=== PATIENT | male | born 1945 | race Caucasian/White ===

== ENCOUNTER 2017-10-07 15:30 | Emergency (ER) | payer OTHER ==
[~2017-10-07] VITALS: Ht 172.7 cm; Wt 68.2 kg
[2017-10-07 15:32] VITALS: Ht 172.7 cm; Wt 68.2 kg
[2017-10-07 16:13] LABS: BASOPHILS 0.3 % (0-2); EOSINOPHILS 3.4 % (0-7); HEMATOCRIT 41.7 % (42.0-54.0); HEMOGLOBIN 14.2 g/dL (13.5-17.5); LYMPHOCYTES 31.3 % (15-50); MCH 32.1 pg (26.0-34.0); MCHC 34.1 g/dL (31.0-37.0); MCV 94.1 fL (80.0-100.0); MEAN PLATELET VOLUME 10.3 fL (7.4-10.4); MONOCYTES 8.9 % (2-11); NEUTROPHILS 56.1 % (40-80); PLATELET COUNT 205 10x3/uL (130-400); RBC 4.43 10x6/uL (4.20-6.10); RDW 13.6 % (11.5-14.5); WBC 6.8 10x3/uL (4.8-10.8)
[2017-10-07 16:31] LABS: ALBUMIN 3.4 g/dL (3.4-5.0); ALKALINE PHOSPHATASE 68 U/L (46-116); ALT (SGPT) 26 U/L (10-68); BILIRUBIN - TOTAL 0.29 mg/dL (0.2-1.3); CALC OSMOLALITY 275 mosm/kg (275-300); CALCIUM 8.6 mg/dL (8.5-10.1); CARBON DIOXIDE 28.3 mmol/L (21.0-32.0); CHLORIDE - SERUM 104 mmol/L (98-107); GLUCOSE 103 mg/dL (74-106); POTASSIUM - SERUM 3.7 mmol/L (3.5-5.1); SODIUM 138 mmol/L (136-145); UREA NITROGEN 12 mg/dL (7-18); eGFR NON AFRICAN AMERICAN 78 mL/min (90-120)
[2017-10-07 16:43] LABS: TROPONIN-I < 0.017 ng/mL (0.000-0.060)
[2017-10-07 21:19] VITALS: BP 137/54
[2017-10-08] MEDS ORDERED: PLAVIX75 MG PO (18:40)
[2017-10-08] MEDS ORDERED: BAYER CHEWABLE81 MG PO (18:40)
[2017-10-14 07:41] VITALS: Ht 172.7 cm; Wt 68.2 kg
== END 2017-10-07 19:21 | disposition home or self-care (01) ==
LOC: D.ER 15:30
PROVIDERS: Family Medicine
DX: I10 Essential (primary) hypertension (principal); R07.9 Chest pain, unspecified; F17.200 Nicotine dependence, unspecified, uncomplicated

== ENCOUNTER 2017-10-08 09:59 | Outpatient (CLI) | payer OTHER ==
[~2017-10-08] VITALS: Ht 172.7 cm; Wt 68.2 kg
--- NOTE | ~2017-10-08 | HEMODYNAMI ---
PATIENT:GERBER OSEI MEDICAL RECORD: [id number] : 47 LOCATION:D.CAT ADMISSION DATE: 10/08/17 Generatedon:10/08/201715:17 Patient name: GERBER OSEI Patient #: [id number] SSN: : Date of study: 10/08/2017 Page: Of Hemodynamic Procedure Report Patient Data Patient Demographics Procedure consent was obtained First Name: GERBER Gender: Male Last Name: : 1945 [facility] Initial: DOLORES Age: 71 year(s) Patient #: [id number] Race: Unknown Additional ID: [id number] Contact details Address: [address] [place] [address] State: [place] City: [place] Zip code: [address] Past Medical History Allergies: No known allergies Admission Admission Data Admission Date: 10/08/2017 Admission Time: 9:59 Lab Results Lab Result Date: 10/08/2017 Lab Result Time: 0:00 Biochemistry Name Units Result Min Max BUN mg/dl 12 --(-*--)-- 7 18 Creatinine mg/dl 1 --(--*-)-- 0.6 1.3 CBC Name Units Result Min Max Hemoglobin g/dl 15.4 --(-*--)-- 13.5 17.5 Procedure Procedure Types Cath Procedure Diagnostic Procedure [facility] w/Coronaries Sedation Charges Moderate Sedation up to 15 minutes PCI Procedure Coronary Stent Coronary Stent Initial Procedure Description Procedure Date Procedure Date: 10/08/2017 Procedure Start Time: 14:47 Procedure End Time: 15:16 Procedure Staff Name Function Wm Mijares MD Performing Physician Marcel Bobo RN Nurse Pallavi Ludwig RT Monitor Rod Marte RT Scrub Procedure Data Cath Procedure Fluoroscopy Diagnostic fluoroscopy Total fluoroscopy Time: 3.9 time: 3.9 min min Diagnostic fluoroscopy Total fluoroscopy dose: 140 dose: 140 mGy mGy Contrast Material Contrast Material Type Amount (ml) Isovue 370 90 Entry Location Entry Primary Successful Side Size Upsize Upsize Entry Closure Succes sful Closure Location (Fr) 1 (Fr) 2 (Fr) Remarks Device Remarks Femoral Right 5 Fr 6 Fr Exoseal artery Short Estimated blood loss: 10 ml Diagnostic catheters Device Type Used For End Catheter Placement MULTIPACK Pigtail 5 Fr Procedure catheter MULTIPACK JL 4.0 5Fr Procedure catheter MULTIPACK 3DRC 5Fr Procedure catheter Procedure Complications No complications Procedure Medications Medication Administration Route Dosage Oxygen etCO2 Nasal cannula 2 l/min Heparin Flush Bag added to field 2 bags (1000units/500ml NS) 0.9% NaCl I.V. 100 ml/hr Fentanyl I.V. 50 mcg Versed I.V. 1 mg Fentanyl I.V. 50 mcg Versed I.V. 1 mg Heparin Bolus I.V. 4000 units Integrilin (Bolus I.V. 6.2 ml 2mg/ml) Nitroglycerin IC/IA I.C. 200 mcg Nitroglycerin IC/IA I.C. 200 mcg Integrilin (Bolus I.C. 6.2 ml 2mg/ml) Plavix P.O. 600 mg Hemodynamics Rest HGB: 15.4 (g/dl) Heart Rate: 61 (bpm) Snapshots Pre Cath Intra NCS Post Cath Vital Signs Time Heart Resp SPO2 etCO2 NIBP (mmHg) Rhythm Pain Sedation Rate (ipm) (%) (mmHg) Status Level (bpm) 14:37:31 59 18 100 24.6 168/86(107) NSR 0 (11) 10(A) , No pain 14:41:55 62 16 100 25.4 160/83(119) NSR 0 (11) 10(A) , No pain 14:46:16 59 16 99 26.1 138/69(114) NSR 0 (11) 10(A) , No pain 14:50:34 63 17 99 17.2 132/72(117) NSR 0 (11) 9(A) , No pain 14:54:52 63 16 99 26.9 140/68(114) NSR 0 (11) 9(A) , No pain 14:59:06 64 14 99 30.6 133/80(109) NSR 0 (11) 9(A) , No pain 15:03:24 61 16 97 27.6 107/49(80) NSR 0 (11) 9(A) , No pain 15:07:34 58 16 97 26.1 114/62(88) NSR 0 (11) 9(A) , No pain 15:09:33 55 17 97 25.4 113/57(94) NSR 0 (11) 9(A) , No pain Medications Time Medication Route Dose Verified Delivered Reason Notes Effectiveness by by 14:41:14 Oxygen etCO2 2 Wm Rod Per physician Nasal l/min Maryana Bobo RN cannula 14:41:22 Heparin Flush added 2 Wm Rod used for Bag to bags Maryana Bobo RN procedure (1000units/500ml field NS) 14:41:34 0.9% NaCl I.V. 100 Wm Rod Per physician ml/hr Maryana Bobo RN 14:46:55 Fentanyl I.V. 50 Wm Ropery for sedation mcg Maryana Bobo RN 14:47:01 Versed I.V. 1 mg Wm Rod for sedation Maryana Bobo RN 14:49:41 Fentanyl I.V. 50 Wm Rod for sedation mcg Maryana Bobo RN 14:49:47 Versed I.V. 1 mg Wm Rod for sedation Maryana Bobo RN 14:55:16 Heparin Bolus I.V. 4000 Wm Rod for units Maryana Bobo RN anticoagulation 14:55:36 Integrilin I.V. 6.2 Wm Rod for (Bolus 2mg/ml) ml Maryana Bobo RN antiplatelet therapy 15:00:37 Nitroglycerin I.C. 200 Wm Rod for IC/IA mcg Maryana Bobo RN vasodilation 15:02:37 Nitroglycerin I.C. 200 Wm Ropery for IC/IA mcg Maryana Bobo RN vasodilation 15:03:03 Integrilin I.C. 6.2 Wm Burk for (Bolus 2mg/ml) ml Maryana Mijares MD antiplatelet therapy 15:08:36 Plavix P.O. 600 Wm Rod for mg Maryana Bobo RN antiplatelet therapy Procedure Log Time Note 14:04:35 Plan of Care:Hemodynamics will remain stable., Cardiac rhythm will remain stable., Comfort level will be maintained., Respiratory function will remain adequate., Patient/ family verbilizes understanding of procedure., Procedure tolerated without complication., Recovers from procedure without complications.. 14:04:37 Signed procedure consent form obtained from patient. 14:04:40 H&P Date Dictated: 10/08/2017 ER History on chart.. 14:05:10 Lab Result : BUN 12 mg/dl 14:05:10 Lab Result : Creatinine 1 mg/dl 14:05:10 Lab Result : Hemoglobin 15.4 g/dl 14:05:50 Marcel Bobo RN sent for patient. Start room use. 14:06:18 Time tracking: Regular hours (M-F 7:00 - 5:00) 14:24:21 Patient received from ED to CCL 3 Alert and oriented. Tansferred to table in Supine position. 14:24:26 Warm blankets applied, and noel hugger turned on for patient comfort. 14:24:27 Correct patient and procedure confirmed by team. 14:31:41 Vital chart was started 14:36:25 Baseline sample Acquired. 14:36:40 Full Disclosure recording started 14:36:41 Pre-procedure instructions explained to patient. 14:36:41 Pre-op teaching completed and patient verbalized understanding. 14:36:43 Family in waiting room. 14:36:47 Patient NPO since Midnight. 14:36:52 Patient allergic to No known allergies 14:36:56 Is the patient allergic to Iodine/contrast media? No. 14:36:58 Patient diabetic? No. 14:37:04 Previous problem with sedation/anesthesia? No ? 14:37:05 Snore? Yes 14:37:06 Sleep apnea? No 14:37:07 Deviated septum? No 14:37:08 Opens mouth fully? Yes 14:37:09 Sticks out tongue? Yes 14:37:11 Airway obstruction? No ? 14:37:19 Dentures? No LOOSE TEETH 14:40:05 Pre procedure: right dorsailis pedis pulse 2+ Normal; easily identifiable; not easily obliterated 14:40:08 Patient pain scale 0/10 ?. 14:40:13 IV patent on arrival in right antecubital with 0.9% NaCl at [facility]. 14:40:14 Lab results completed and on chart. 14:40:17 Right groin area was prepped with chlora-prep and draped in sterile fashion 14:40:18 Alarms reviewed by R. N. 14:40:18 Sharps counted by scrub and verified by R.N. 14:40:22 Use device set Femoral Dx 14:40:23 ACIST Syringe (10856) opened to sterile field. 14:40:23 Bag Decanter (2002S) opened to sterile field. 14:40:24 ACIST Hand Control (73123) opened to sterile field. 14:40:24 ACIST Manifold (50180) opened to sterile field. 14:40:25 Tegaderm 4 x 4 (1626W) opened to sterile field. 14:40:37 Medline Cath Pack ([id number]) opened to sterile field. 14:40:38 DIAGNOSTIC WIRE .035 260cm J wire (765462) opened to sterile field. 14:40:39 DIAGNOSTIC Multipack 5Fr catheter set (UI6532) opened to sterile field. 14:40:40 SHEATH Prelude 5Fr 0.035 (IBC-4H-29-035) opened to sterile field. 14:41:14 Oxygen 2 l/min etCO2 Nasal cannula was administered by Marcel Bobo RN; Per physician; 14:41:22 Heparin Flush Bag (1000units/500ml NS) 2 bags added to field was administered by Marcel Bobo RN; used for procedure; 14:41:34 0.9% NaCl 100 ml/hr I.V. was administered by Marcel Bobo RN; Per physician; 14:45:32 Zero performed for pressure channel P1 14:45:35 --------ALL STOP TIME OUT------ 14:45:35 Final Timeout: patient, procedure, and site verified with staff and physician. All members of the team are in agreement. 14:45:38 Right groin site verified by team. 14:45:41 Physical assessment completed. ASA score P 2 - A patient with mild systemic disease as per Wm Mijares MD. 14:45:43 Sedation plan: IV Moderate Sedation Medication:Versed, Fentanyl 14:46:55 Fentanyl 50 mcg I.V. was administered by Marcel Bobo RN; for sedation; 14:47:01 Versed 1 mg I.V. was administered by Marcel Bobo RN; for sedation; 14:47:04 Procedure started. 14:47:08 Local anesthetic to right femoral artery with Lidocaine 2% by Wm Mijares MD.INITIAL ACCESS ONLY 14:47:12 Zero performed for pressure channel P1 14:47:31 A 5 Fr sheath was inserted into the Right Femoral artery 14:47:48 A MULTIPACK Pigtail 5 Fr catheter was advanced over the wire and used for Procedure. 14:48:03 LV gram done using FRANKLIN 14:48:06 Injector settings: Ml/sec: 10, Volume: 20, 14:48:44 EF : 60 % 14:48:46 Catheter removed. 14:48:50 A MULTIPACK JL 4.0 5Fr catheter was advanced over the wire and used for Procedure. 14:49:41 Fentanyl 50 mcg I.V. was administered by Marcel Bobo RN; for sedation; 14:49:47 Versed 1 mg I.V. was administered by Marcel Bobo RN; for sedation; 14:50:26 LCA angiography performed. 14:50:44 Catheter removed. 14:50:49 A MULTIPACK 3DRC 5Fr catheter was advanced over the wire and used for Procedure. 14:51:50 RCA angiography performed. 14:51:54 Catheter removed. 14:52:10 INFLATOR Merit BasixCompak (JG5963) opened to sterile field. 14:52:11 CHOICE PT Extra Support 182cm wire ([id number]) opened to sterile field. 14:52:11 SHEATH 6FR [place] (ONK937) opened to sterile field. 14:52:26 Sheath upsized to a 6 Fr Short. 14:52:53 GUIDE 6FR AR 2.0 catheter (OH9BF34) opened to sterile field. 14:53:31 6 Fr AR 2 guide catheter was inserted over the wire 14:54:18 CHOICE ES 182 wire advanced. 14:54:19 Wire advanced across lesion. 14:55:16 Heparin Bolus 4000 units I.V. was administered by Marcel Bobo RN; for anticoagulation; 14:55:36 Integrilin (Bolus 2mg/ml) 6.2 ml I.V. was administered by Marcel Bobo RN; for antiplatelet therapy; 14:56:36 Place stent Inflation Number: 1 A RICHIE RX 3.5 x 38 stent ([id number]) was prepped and advanced across the Mid RCA. The stent was deployed at 17 HARJE[address] for 0:10 (min:sec). 14:56:50 Stent catheter was removed intact over wire. 14:58:36 Place stent Inflation Number: 1 A RICHIE RX 3.5 x 30 stent ([id number]) was prepped and advanced across the Prox RCA. The stent was deployed at 17 HARJEET for 0:10 (min:sec). 14:59:17 Stent catheter was removed intact over wire. 15:00:37 Nitroglycerin IC/IA 200 mcg I.C. was administered by Marcel Bobo RN; for vasodilation; 15:02:37 Nitroglycerin IC/IA 200 mcg I.C. was administered by Marcel Bobo RN; for vasodilation; 15:03:03 Integrilin (Bolus 2mg/ml) 6.2 ml I.C. was administered by Wm Mijares MD; for antiplatelet therapy; 15:04:21 Wire removed. 15:04:22 Guide catheter removed. 15:04:30 EXOSEAL 6Fr (EX600) opened to sterile field. 15:05:18 Sheath removed intact; hemostasis achieved with Exoseal to the Right Femoral artery. 15:06:01 Procedure ended.(Physican Out) 15:07:14 Fluoroscopy time 03.90 minutes. 15:07:19 Fluoroscopy dose: 140 mGy 15:07:19 Flurop Dose total: 140 15:07:26 Contrast amount:Isovue 370 90ml. 15:07:27 Sharps counted by scrub and verified by R.N. 15:07:31 Post-op/insertion site Right Femoral artery dressed using a 4 x 4 and Tegaderm. 15:07:35 Post right femoral artery:stable, soft, clean and dry 15:07:39 Post-procedure physical assessment completed. ASA score P 2 - A patient with mild systemic disease as per Wm Mijares MD. 15:07:41 Post procedure: right dorsailis pedis pulse 2+ Normal; easily identifiable; not easily obliterated. 15:08:30 POST PROCEDURE RHYTHM: SINUS WITH PACs 15:08:36 Plavix 600 mg P.O. was administered by Marcel Bobo RN; for antiplatelet therapy; 15:08:37 Estimated blood loss: 10 ml 15:08:38 Post procedure instruction explained to patient.Patient verbalizes understanding. 15:08:39 Patient needs reinforcement of post procedure teaching. 15:09:06 Procedure type changed to Cath procedure, Diagnostic procedure, LHC, LHC w/Coronaries, Sedation Charges, Moderate Sedation up to 15 minutes, PCI procedure, Coronary Stent, Coronary Stent Initial 15:09:48 Procedure and supply charges have been captured, reviewed, submitted and are correct. 15:09:52 Procedure Complication : No complications 15:09:55 Vital chart was stopped 15:09:56 See physician's report for complete and final results. 15:15:13 FEMSTOP Gold (O28001) opened to sterile field. 15:15:15 Femstop placed over the right femoral artery at 145 mmHg. Hemostasis achieved. 15:16:19 Report given to Pre/Post Procedure Room. 15:16:30 Patient transfered to Pre/Post Procedure Room with Bed. 15:16:32 Procedure ended. 15:16:32 Full Disclosure recording stopped 15:16:35 End room use (Document Last) Intervention Summary Intervention Notes Time ActionType Lesion and Equipment Used Action# Pressure Duration Attributes 14:56:36 Place stent Mid RCA RICHIE RX 3.5 x 1 17 00:10 38 stent ([id number]) 14:58:36 Place stent Prox RCA RICHIE RX 3.5 x 1 17 00:10 30 stent ([id number]) Device Usage Item Name Manufacture Quantity Catalog Number Hospital Part Current Minimal Lot# / Charge Number Stock Stock Serial# Code ACIST Syringe Acist 1 01774 592055 415303 587639 20 (49101) Medical Systems Inc Bag Decanter Microtek 1 2002S 310739 82754 391234 5 (2001S) Medical Inc. ACIST Hand Acist 1 98730 352314 175453 540752 5 Control (75028) Medical Systems Inc ACIST Manifold Acist 1 69064 927158 152741 163669 5 (41407) Medical Systems Inc Tegaderm 4 x 4 3M 1 1626W 631460 871283 615995 5 (1626W) Medline Cath Cardinal 1 [id number] 936920 90827 212449 5 Pack Health ([id number]) DIAGNOSTIC WIRE St Elder 1 779227 632429 052438 319422 30 .035 260cm J wire (825911) DIAGNOSTIC Cardinal 1 YE7646 486985 49544 502740 30 Multipack 5Fr Health catheter set (BP2141) SHEATH Prelude Merit 1 QED-5E-09-035 412941 449941 239431 5 5Fr 0.035 Medical (VFK-0A-75-035) MULTIPACK Cardinal 1 847276 5 Pigtail 5 Fr Health catheter MULTIPACK JL Cardinal 1 027040 5 4.0 5Fr Health catheter MULTIPACK 3DRC Cardinal 1 933604 5 5Fr catheter Health INFLATOR Merit Pollo 1 ZH7291 051717 689033 003821 15 [facility] (DH5460) CHOICE PT Extra [place] 1 [id number] 353636 658394 236252 5 Support 182cm Scientific wire ([id number]) SHEATH 6FR Terumo 1 QVS477 055751 187263 508508 40 [place] (YRB259) GUIDE 6FR AR Medtronic 1 [id number] 668267 15579 961817 1 2.0 catheter (SI1ZM64) RICHIE RX 3.5 x Medtronic 1 [id number] 492246 2807332 441364 5 [id number] 38 stent ([id number]) RICHIE RX 3.5 x Medtronic 1 [id number] 682007 5420327 875853 5 [id number] 30 stent ([id number]) EXOSEAL 6Fr Cardinal 1 EX600 252334 133836 333909 10 (EX600) Health FEMSTOP Gold St Elder 1 B94922 921652 094440 033261 5 ([id number]) Signature Audit [place] Stage Time Signature Unsigned Intra-Procedure 10/08/2017 Pallavi Ludwig 3:17:53 PM RT(R) Signatures Monitor : Pallavi Ludwig Signature : RT Date : Time : [facility] [address] [place] [address]
--- NOTE | ~2017-10-08 | OP ---
PATIENT NAME: GERBER OSEI MEDICAL RECORD: [id number] :47 LOCATION:D.CAT ADMISSION DATE: SURGEON: URSZULA SANTOS MD DATE OF OPERATION: 10/08/2017 PROCEDURES: 1. PTCA stent RCA. 2. Left heart catheterization. 3. Selective coronary angiography. 4. Left ventriculogram. INDICATION: Angina and coronary artery disease. PROCEDURE IN DETAIL: After informed consent was obtained and after a detailed explanation of risks, benefits as well as alternative therapies, the patient elected to proceed with angiogram and angioplasty. The right femoral area was prepped and draped in normal sterile fashion. The right femoral artery was cannulated via modified Seldinger technique with placement of 6-[place] sheath. All catheters exchanged through this sheath. FINDINGS: Left ventriculogram was performed in standard 30-degree FRANKLIN view, reveals good cardiac wall motions throughout all segments. Overall ejection fraction is 60%. SELECTIVE CORONARY ANGIOGRAPHY: 1. Left main is with no significant angiographic disease. 2. Left anterior descending has 80% stenosis throughout the proximal aspect. 3. The left circumflex has at least 80% stenosis in the proximal aspect. 4. The right coronary has multiple areas of 70% to 80% stenosis with what appears to be an auto-dissection as well throughout the proximal vessel. PTCA STENT OF THE RCA: Stents used were 3.5 x 38 and 3.5 x 30, both [place] stents. Result was 0% residual stenosis. OVERALL IMPRESSION: Successful percutaneous transluminal coronary angioplasty stent of the right coronary artery going from greater than 80% initial stenosis to 0% residual. PLAN: PTCA stent of the LAD and circumflex in the near future. TRANSINT:[id number] Voice Confirmation ID: [id number] DOCUMENT ID: [id number] URSZULA SANTOS MD at 1208 CC: [id number] DICTATION DATE: 10/08/17 1516 FNP: 10/08/17 1546 [facility] CLI 10/08/17 [place] [id number] [place] [id number]
--- NOTE | ~2017-10-08 | CN ---
PATIENT NAME:GERBER OSEI MEDICAL RECORD: [id number] : 47 LOCATION:D.ROSSI ADMIT DATE: ACCOUNT: [id number] CONSULTING PHYSICIAN: URSZULA SANTOS MD REFERRING PHYSICIAN: URSZULA SANTOS MD DATE OF CONSULTATION: 10/08/2017 DIAGNOSIS: Unstable angina. HISTORY OF PRESENT ILLNESS: This is a gentleman who presented to the ER yesterday with chest pain compatible with angina. [facility] He was sent out. He has continued to have episodes of chest pain compatible with angina. He has been back to the [facility]. They can still not transfer him. He presented back to our Emergency Room. PHYSICAL EXAMINATION: GENERAL APPEARANCE: Well-nourished, well-developed, appears stated age. Level of distress, comfortable. PSYCHIATRIC: Mental status, alert, normal affect. Orientation, oriented to time, place and person. EYES: Lids and conjunctiva, noninjected. No discharge, no pallor. ENT: Lips, teeth, gums, normal dentition. Oropharynx, no cyanosis, no pallor. NECK: Carotid arteries, bilateral normal upstroke, no bruits, no thrills. JUGULAR VEINS: No jugular venous pressure or distention. CERVICAL LYMPH NODES: Nontender, nonenlarged. THYROID: Not enlarged. Nontender. No nodules. LUNGS: Respiratory effort, unlabored. CHEST: Normal curvature. No thoracic deformity. No chest wall tenderness. Percussion, resonant. Auscultation, clear. No wheezes, no rales, no rhonchi. CARDIOVASCULAR: Precordial exam, nondisplaced. No heaves or pericardial thrills. Rate and rhythm, regular. Heart sounds, normal S1, normal S2. No S3, no gallop, no rub. Systolic murmur, not heard. Diastolic murmur, not heard. EXTREMITIES: No cyanosis, no edema. Peripheral pulses, full and equal in all extremities, except as noted. No bruits appreciated. ABDOMEN: Soft, nondistended. Normal aorta. No bruit. Nontender. No masses. Liver, nontender, no hepatomegaly. Spleen, nontender, no splenomegaly. MUSCULOSKELETAL: No joint tenderness. No joint swelling. No erythema. NEUROLOGICAL: Normal gait, normal strength, normal tone. SKIN: Warm and dry. OVERALL IMPRESSION: Chest pain compatible with angina. We will proceed with coronary angiography. Further care depends upon findings of the angiography. TRANSINT:[id number] Voice Confirmation ID: [id number] DOCUMENT ID: [id number] URSZULA SANTOS MD at 1208 CC: [id number] DICTATION DATE: 10/08/17 1514 FLOOR LAYER TILE: 10/08/17 1524 [facility] CLI 10/08/[address] [id number]
[2017-10-08 10:23] VITALS: Ht 172.7 cm; Wt 68.2 kg
[2017-10-08 11:02] LABS: INR 1.01 (0.85-1.17); PROTIME 12.9 SECONDS (11.6-15.0)
[2017-10-08 11:03] LABS: D-DIMER-QUANTITATIVE 0.72 ug/mLFEU (0.20-0.54)
[2017-10-08 11:06] LABS: ALBUMIN 3.8 g/dL (3.4-5.0); ALKALINE PHOSPHATASE 78 U/L (46-116); ALT (SGPT) 26 U/L (10-68); BILIRUBIN - TOTAL 0.66 mg/dL (0.2-1.3); CALC OSMOLALITY 281 mosm/kg (275-300); CALCIUM 9.1 mg/dL (8.5-10.1); CARBON DIOXIDE 28.9 mmol/L (21.0-32.0); CHLORIDE - SERUM 104 mmol/L (98-107); GLUCOSE 109 mg/dL (74-106); POTASSIUM - SERUM 4.1 mmol/L (3.5-5.1); PROTEIN - SERUM 7.8 g/dL (6.4-8.2); SODIUM 141 mmol/L (136-145); UREA NITROGEN 12 mg/dL (7-18); eGFR NON AFRICAN AMERICAN 78 mL/min (90-120)
[2017-10-08 11:09] LABS: BASOPHILS 0.3 % (0-2); EOSINOPHILS 2.6 % (0-7); HEMATOCRIT 45.1 % (42.0-54.0); HEMOGLOBIN 15.4 g/dL (13.5-17.5); IMMATURE GRANULOCYTES 0.2 % (0-5); LYMPHOCYTES 31.4 % (15-50); MCHC 34.1 g/dL (31.0-37.0); MCV 93.8 fL (80.0-100.0); MEAN PLATELET VOLUME 10.4 fL (7.4-10.4); MONOCYTES 5.9 % (2-11); NEUTROPHILS 59.6 % (40-80); PLATELET COUNT 216 10x3/uL (130-400); RBC 4.81 10x6/uL (4.20-6.10); RDW 13.6 % (11.5-14.5); WBC 6.3 10x3/uL (4.8-10.8)
[2017-10-08 11:18] LABS: CKMB 1.4 U/L (0.0-3.6); CREATINE KINASE 73 UL (21-232)
[2017-10-08 11:19] LABS: TROPONIN-I < 0.017 ng/mL (0.000-0.060)
[2017-10-08 14:15] VITALS: BP 174/86
[2017-10-08] MEDS ORDERED: PLAVIX75 MG PO (18:40)
[2017-10-08] MEDS ORDERED: BAYER CHEWABLE81 MG PO (18:40)
== END 2017-10-08 19:15 | disposition home or self-care (01) ==
LOC: D.CATH 09:59 → D.ER 09:59 → EDSTATUS 12:30 → D.ER 14:19 → D.CLR 15:27 → D.CATH 19:15
PROVIDERS: Family Medicine
DX: I25.119 Atherosclerotic heart disease of native coronary artery with unspecified angina pectoris (principal); Z01.812 Encounter for preprocedural laboratory examination
CPT/HCPCS: 93458; C9600

== ENCOUNTER 2017-10-14 07:41 | Outpatient (CLI) | payer MEDICARE ==
[~2017-10-14] VITALS: Ht 172.7 cm; Wt 68.2 kg
--- NOTE | ~2017-10-14 | HP ---
PATIENT: GERBER OSEI [place] MEDICAL RECORD: [id number] ACCOUNT: [id number] LOCATION:EMERY : 47 ADMISSION DATE: 10/14/17 HISTORY AND PHYSICAL EXAMINATION DATE OF SERVICE: 10/14/2017 ADMITTING DIAGNOSES: 1. Angina. 2. Coronary artery disease. 3. Recent PTCA stent of RCA with concomitant disease of LAD. HISTORY OF PRESENT ILLNESS: Mr. Osei presents with unstable anginal symptomatology, found to have 3-vessel coronary artery disease, underwent successful PTCA stent of the RCA. He is now brought back for PTCA stent of the LAD and circumflex. PHYSICAL EXAMINATION: GENERAL APPEARANCE: Well-nourished, well-developed, appears stated age. Level of distress, comfortable. PSYCHIATRIC: Mental status, alert, normal affect. Orientation, oriented to time, place and person. EYES: Lids and conjunctiva, noninjected. No discharge, no pallor. ENT: Lips, teeth, gums, normal dentition. Oropharynx, no cyanosis, no pallor. NECK: Carotid arteries, bilateral normal upstroke, no bruits, no thrills. JUGULAR VEINS: No jugular venous pressure or distention. CERVICAL LYMPH NODES: Nontender, nonenlarged. THYROID: Not enlarged. Nontender. No nodules. LUNGS: Respiratory effort, unlabored. CHEST: Normal curvature. No thoracic deformity. No chest wall tenderness. Percussion, resonant. Auscultation, clear. No wheezes, no rales, no rhonchi. CARDIOVASCULAR: Precordial exam, nondisplaced. No heaves or pericardial thrills. Rate and rhythm, regular. Heart sounds, normal S1, normal S2. No S3, no gallop, no rub. Systolic murmur, not heard. Diastolic murmur, not heard. EXTREMITIES: No cyanosis, no edema. Peripheral pulses, full and equal in all extremities, except as noted. No bruits appreciated. ABDOMEN: Soft, nondistended. Normal aorta. No bruit. Nontender. No masses. Liver, nontender, no hepatomegaly. Spleen, nontender, no splenomegaly. MUSCULOSKELETAL: No joint tenderness. No joint swelling. No erythema. NEUROLOGICAL: Normal gait, normal strength, normal tone. SKIN: Warm and dry. REVIEW OF SYSTEMS: The patient reports easy bruising but reports no swollen glands. The patient reports no fever, no night sweats, no significant weight gain, no significant weight loss. No significant exercise tolerance. The patient reports no dry eyes, no irritation, no vision change. Patient reports no difficulty hearing and no ear pain. Patient reports no frequent nose bleeds or nose and sinus problems. Patient reports on arm pain on exertion. No shortness of breath while lying down. No history of heart murmur. Patient reports no cough, no wheezing or coughing up blood. Patient reports no abdominal pain, no vomiting. Normal appetite. No diarrhea and not vomiting blood. No nausea and no constipation. Patient reports no incontinence. No difficulty urinating. No hematuria. No increased frequency. Patient reports no muscle aches. No weakness, no arthralgias, no back pain. No swelling of the extremities. Patient reports no abnormal mole, no jaundice, no rashes. Reports HISTORY AND PHYSICAL [id number] GERBER OSEI no loss of consciousness. No weakness and no numbness. No seizures, dizziness, or headaches. The patient reports no depression, no sleep disturbance, feeling safe in a relationship and no alcohol abuse. Patient reports on fatigue. Reports no runny nose or sinus pressure. No itching, no hives, and no frequent sneezing. OVERALL IMPRESSION: Anginal symptomatology with significant disease of the LAD and circumflex. We will proceed with transcatheter revascularization of the LAD and circumflex. TRANSINT:[id number] Voice Confirmation ID: [id number] DOCUMENT ID: [id number] URSZULA SANTOS MD at 1741 CC: [id number] DICTATION DATE: 10/13/17 1601 OBSTETRICS AND GYNECOLOGY PROFESSOR: 10/13/17 1619 [facility] CLI 10/14/17 [place] [id number]
--- NOTE | ~2017-10-14 | HEMODYNAMI ---
PATIENT:GERBER OSEI MEDICAL RECORD: [id number] : 47 LOCATION:D.CAT ADMISSION DATE: 10/14/17 Generatedon:10/14/20179:28 Patient name: GERBER OSEI Patient #: [id number] SSN: : Date of study: 10/14/2017 Page: Of Hemodynamic Procedure Report Patient Data Patient Demographics Procedure consent was obtained First Name: GERBER Gender: Male Last Name: : 1945 [facility] Initial: DOLORES Age: 71 year(s) Patient #: [id number] Race: Additional ID: [id number] Contact details Address: [address] [place] [address] State: [place] City: [place] Zip code: [address] Past Medical History Allergies: No known allergies Admission Admission Data Admission Date: 10/14/2017 Admission Time: 7:41 Lab Results Lab Result Date: 10/14/2017 Lab Result Time: 0:00 CBC Name Units Result Min Max Hemoglobin g/dl 13.3 -*(----)-- 13.5 17.5 Procedure Procedure Types Cath Procedure PCI Procedure Coronary Stent Coronary Stent Initial x2 Procedure Description Procedure Date Procedure Date: 10/14/2017 Procedure Start Time: 9:08 Procedure End Time: 9:27 Procedure Staff Name Function Wm Mijares MD Performing Physician Rod Marte RT Monitor Marcel Bobo RN Nurse Rocco Renteria RT Scrub Procedure Data Cath Procedure Fluoroscopy Diagnostic fluoroscopy Total fluoroscopy Time: 3.1 time: 3.1 min min Diagnostic fluoroscopy Total fluoroscopy dose: dose: 101.3 mGy 101.3 mGy Contrast Material Contrast Material Type Amount (ml) Isovue 300 69 Entry Location Entry Primary Successful Side Size Upsize Upsize Entry Closure Succes sful Closure Location (Fr) 1 (Fr) 2 (Fr) Remarks Device Remarks Femoral Left 6 Fr DEVICE artery Short DID NOT DEPLOY Procedure Medications Medication Administration Route Dosage Oxygen etCO2 Nasal cannula 2 l/min Heparin Flush Bag added to field 2 bags (1000units/500ml NS) 0.9% NaCl I.V. 100 ml/hr Fentanyl I.V. 50 mcg Versed I.V. 1 mg Fentanyl I.V. 50 mcg Versed I.V. 1 mg Heparin Bolus I.V. 4000 units Fentanyl I.V. 50 mcg Hemodynamics Rest HGB: 13.3 (g/dl) Heart Rate: 60 (bpm) Snapshots Pre Cath Intra NCS Post Cath Vital Signs Time Heart Resp SPO2 etCO2 NIBP (mmHg) Rhythm Pain Sedation Rate (ipm) (%) (mmHg) Status Level (bpm) 8:38:18 61 16 99 0 179/96(154) NSR 0 (11) 10(A) , No pain 8:43:27 60 16 100 24.7 179/95(146) NSR 0 (11) 10(A) , No pain 8:48:33 62 17 97 14.2 160/97(136) NSR 0 (11) 10(A) , No pain 8:52:51 57 17 99 22.5 154/95(133) NSR 0 (11) 10(A) , No pain 8:57:58 60 16 94 0 163/83(126) NSR 0 (11) 10(A) , No pain 9:02:16 61 16 92 0 147/81(112) NSR 0 (11) 10(A) , No pain 9:06:32 58 17 94 22.5 151/83(118) NSR 0 (11) 9(A) , No pain 9:10:50 61 16 95 34.5 152/88(126) NSR 0 (11) 9(A) , No pain 9:15:06 62 17 94 36 158/85(134) NSR 0 (11) 9(A) , No pain 9:19:30 63 16 95 34.5 156/74(121) NSR 0 (11) 9(A) , No pain 9:20:56 58 17 95 33.8 155/88(120) NSR 0 (11) 9(A) , No pain 9:25:55 59 16 96 37.5 156/85(126) NSR 0 (11) 9(A) , No pain Medications Time Medication Route Dose Verified Delivered Reason Notes Effectiveness by by 8:40:20 Oxygen etCO2 2 Wm Marcel Per physician Nasal l/min Maryana Bobo RN cannula 8:40:28 Heparin Flush added 2 Wm Rod used for Bag to bags Maryana Bobo RN procedure (1000units/500ml field NS) 8:40:37 0.9% NaCl I.V. 100 Wm Ropery Per physician ml/hr Maryana Bobo RN 9:03:28 Fentanyl I.V. 50 Wm Ropery for sedation mcg Maryana Bobo RN 9:03:35 Versed I.V. 1 mg Wm Ropery for sedation Maryana Bobo RN 9:09:19 Fentanyl I.V. 50 Wm Marcel for sedation mcg Maryana Bobo RN 9:09:22 Versed I.V. 1 mg Wm Marcel for sedation Maryana Bobo RN 9:09:32 Heparin Bolus I.V. 4000 Wm Marcel for units Maryana Bobo RN anticoagulation 9:12:38 Fentanyl I.V. 50 Wm Rod for sedation mcg Maryana Bobo RN Procedure Log Time Note 8:17:34 Rod Marte RT(R) (CV) sent for patient. Start room use. 8:21:28 Informed consent obtained and on chart 8:21:34 PCI Cath Status : Elective 8:22:36 Time tracking: Regular hours (M-F 7:00 - 5:00) 8:22:42 Plan of Care:Hemodynamics will remain stable., Cardiac rhythm will remain stable., Comfort level will be maintained., Respiratory function will remain adequate., Patient/ family verbilizes understanding of procedure., Procedure tolerated without complication., Recovers from procedure without complications.. 8:30:41 Patient received from Pre/Post Procedure Room to CCL 3 Alert and oriented. Tansferred to table in Supine position. 8:30:42 Warm blankets applied, and noel hugger turned on for patient comfort. 8:30:43 Correct patient and procedure confirmed by team. 8:30:44 ECG and BP/O2 sat monitors applied to patient. 8:37:05 Vital chart was started 8:37:41 Baseline sample Acquired. 8:38:00 Rhythm: sinus rhythm 8:38:02 Full Disclosure recording started 8:38:12 H&P Date Dictated: 10/14/2017 New H&P dictated by physician.. 8:38:15 Pre-procedure instructions explained to patient. 8:38:15 Pre-op teaching completed and patient verbalized understanding. 8:38:17 Family in waiting room. 8:38:19 Patient NPO since Midnight. 8:38:27 Patient allergic to No known allergies 8:40:12 Is the patient allergic to Iodine/contrast media? No. 8:40:14 Is patient on blood thinner?Yes 8:40:17 ACC The patient was administered the following blood thiners within the last 24 hours: ACCPlavix 8:40:20 Oxygen 2 l/min etCO2 Nasal cannula was administered by Marcel Bobo RN; Per physician; 8:40:20 Patient diabetic? No. 8:40:22 ----Pre-sedation anethsthesia assessment.---- 8:40:25 Previous problem with sedation/anesthesia? No ? 8:40:27 Snore? Yes 8:40:28 Heparin Flush Bag (1000units/500ml NS) 2 bags added to field was administered by Marcel Bobo RN; used for procedure; 8:40:29 Sleep apnea? No 8:40:31 Deviated septum? No 8:40:31 Opens mouth fully? Yes 8:40:32 Sticks out tongue? Yes 8:40:35 Airway obstruction? No ? 8:40:37 0.9% NaCl 100 ml/hr I.V. was administered by Marcel Bobo RN; Per physician; 8:40:38 Dentures? No ? 8:41:49 Pre procedure: left dorsailis pedis pulse 1+ Palpable, but thready & weak; easily obliterated 8:42:06 Patient pain scale 0/10 ?. 8:42:20 IV patent on arrival in left wrist with 0.9% NaCl at O. 8:44:35 Lab Result : Hemoglobin 13.3 g/dl 8:44:40 Lab results completed and on chart. 8:44:45 Left groin area was prepped with chlora-prep and draped in sterile fashion 8:44:47 Alarms reviewed by R. N. 8:44:47 Sharps counted by scrub and verified by R.N. 8:44:57 Use device set Acist 8:44:58 ACIST Syringe (34846) opened to sterile field. 8:44:59 ACIST Hand Control (24378) opened to sterile field. 8:45:00 ACIST Manifold (25766) opened to sterile field. 8:45:11 Use device set CATH PACK 8:45:16 Medline Cath Pack ([id number]) opened to sterile field. 8:45:18 Bag Decanter (2002S) opened to sterile field. 8:45:19 DIAGNOSTIC WIRE .035 260cm J wire (837338) opened to sterile field. 8:45:59 SHEATH Prelude 6Fr 0.035 ([id number]-[id number]-91-035) opened to sterile field. 8:46:11 INFLATOR Merit BasixCompak ([id number]) opened to sterile field. 8:46:18 CHOICE PT Extra Support 182cm wire ([id number]) opened to sterile field. 8:55:15 Physician arrived 8:55:26 DR. MIJARES IN ROOM 1 8:58:02 Zero performed for pressure channel P1 9:03:05 --------ALL STOP TIME OUT------ 9:03:05 Final Timeout: patient, procedure, and site verified with staff and physician. All members of the team are in agreement. 9:03:08 Left groin site verified by team. 9:03:12 Physical assessment completed. ASA score P 2 - A patient with mild systemic disease as per Wm Mijares MD. 9:03:17 Sedation plan: IV Moderate Sedation Medication:Versed, Fentanyl 9:03:28 Fentanyl 50 mcg I.V. was administered by Marcel Bobo RN; for sedation; 9:03:35 Versed 1 mg I.V. was administered by Marcel Bobo RN; for sedation; 9:08:26 Procedure started. 9:08:32 Local anesthetic to left femerol artery with Lidocaine 2% by Wm Mijares MD.INITIAL ACCESS ONLY 9:08:51 GUIDE 6FR XBLAD 3.5 catheter ([id number]) opened to sterile field. 9:09:13 A 6 Fr Short sheath was inserted into the Left Femoral artery 9:09:19 Fentanyl 50 mcg I.V. was administered by Marcel Bobo RN; for sedation; 9:09:22 Versed 1 mg I.V. was administered by Marcel Bobo RN; for sedation; 9:09:23 6 Fr XBLAD 3.5 guide catheter was inserted over the wire 9:09:32 Heparin Bolus 4000 units I.V. was administered by Marcel Bobo RN; for anticoagulation; 9:10:07 CHOICE wire advanced. 9:10:18 LAD 9:10:29 Wire advanced across lesion. 9:11:45 Place stent Inflation Number: 1 A RICHIE RX 2.5 x 15 stent ([id number]) was prepped and advanced across the Prox LAD. The stent was deployed at 17 HARJEET for 0:10 (min:sec). 9:11:59 Stent catheter was removed intact over wire. 9:12:05 Wire redirected to CIRC. 9:12:38 Fentanyl 50 mcg I.V. was administered by Marcel Bobo RN; for sedation; 9:14:35 Procedure type changed to Cath procedure, PCI procedure, Coronary Stent, Coronary Stent Initial x2 9:15:34 Place stent Inflation Number: 1 A RICHIE RX 2.5 x 08 stent ([id number]) was prepped and advanced across the Prox CX. The stent was deployed at 17 HARJEET for 0:10 (min:sec). 9:17:00 VASCADE 6/7 Fr ([id number]) opened to sterile field. 9:17:08 Stent catheter was removed intact over wire. 9:17:09 Wire removed. 9:17:10 Guide catheter removed. 9:23:16 VASCADE CLOSURE SYSTEM DID NOT DEPLOY, SHEATH REMOVED INTACT FEMOSTOP APPLIED TO LFA AT 143 9:23:25 Procedure ended.(Physican Out) 9:24:04 Fluoroscopy time 03.10 minutes. 9:24:11 Flurop Dose total: 101.3 9:24:11 Fluoroscopy dose: 101.3 mGy 9:24:16 Contrast amount:Isovue 300 69ml. 9:24:18 Sharps counted by scrub and verified by R.N. 9:24:22 Insertion/operative site no bleeding no hematoma. 9:24:38 Post left femerol artery:stable 9:24:53 Post-procedure physical assessment completed. ASA score P 2 - A patient with mild systemic disease as per Wm Mijares MD. 9:25:52 Procedure and supply charges have been captured, reviewed, submitted and are correct. 9:27:21 Vital chart was stopped 9::21 See physician's report for complete and final results. 9:27:24 Report given to Pre/Post Procedure Room. 9:27:28 Patient transfered to Pre/Post Procedure Room with Bed. 9::31 Procedure ended. 9::31 Full Disclosure recording stopped 9:27:34 End room use (Document Last) Intervention Summary Intervention Notes Time ActionType Lesion and Equipment Used Action# Pressure Duration Attributes 9:11:45 Place stent Prox LAD RICHIE RX 2.5 x 1 17 00:10 15 stent ([id number]) 9:15:34 Place stent Prox CX RICHIE RX 2.5 x 1 17 00:10 08 stent ([id number]) Device Usage Item Name Manufacture Quantity Catalog Number Hospital Part Current Minimal Lot# / Charge Number Stock Stock Serial# Code ACIST Syringe Acist 1 28863 160211 285592 419052 20 (82675) [employer] Inc ACIST Hand Acist 1 14494 123062 187443 419222 5 Control (73920) [employer] ACIST Manifold Acist 1 54597 957780 586681 476077 5 (37661) [employer] Medline Cath Cardinal 1 [id number] 936602 46788 628656 5 Pack Health ([id number]) Bag Decanter Microtek 1 2001S 764614 24982 810374 5 (2001S) Medical Inc. DIAGNOSTIC WIRE St [place] 1 333884 687621 940225 912953 30 .035 260cm J wire (348395) SHEATH Prelude Merit 1 [id number] 946133 0240872 565537 5 6Fr 0.035 Medical (FLM-9B-41-035) INFLATOR Merit Merit 1 [id number] 792126 706864 768063 15 BasixCompak Medical (XZ1088) CHOICE PT Extra [place] 1 [id number] 379063 958819 648351 5 Support 182cm Scientific wire ([id number]) GUIDE 6FR XBLAD Cardinal 1 [id number] 899169 590676 314978 10 3.5 catheter [employer] ([id number]) RICHIE RX 2.5 x Medtronic 1 [id number] 395016 3516464 829208 5 [id number] 15 stent ([id number]) RICHIE RX 2.5 x Medtronic 1 [id number] 540364 0407441 172807 5 [id number] 08 stent ([id number]) VASCADE 09/18 Fr Cardiva 1 [id number] 047495 722817 228521 5 ([id number]) [employer] Signature Audit [place] Stage Time Signature Unsigned Intra-Procedure 10/14/2017 Rod Marte 9:28:39 AM RT(R) (CV) Signatures Monitor : Rod Marte RT Signature : Date : Time : [id number] [place] [address]
--- NOTE | ~2017-10-14 | OP ---
PATIENT NAME: GERBER OSEI MEDICAL RECORD: [id number] :47 LOCATION:D.CAT ADMISSION DATE: SURGEON: URSZULA SANTOS MD DATE OF OPERATION: 10/14/2017 PROCEDURES: 1. PTCA stent LAD. 2. PTCA stent left circumflex. 3. Selective coronary angiography. INDICATION: Angina and coronary artery disease. PROCEDURE IN DETAIL: After informed consent was obtained and after a detailed description of the risks, benefits as well as alternative therapies, the patient elected to proceed with angiogram and angioplasty. The left femoral area was prepped and draped in normal sterile fashion. Left femoral artery was cannulated via modified Seldinger technique with placement of 6-Greek sheath. All catheters exchanged through this sheath. FINDINGS: The left anterior descending and circumflex, both had 70% to 80% stenosis proximally. These were addressed with a 2.5 x 15 mm [place] in the LAD and 2.5 x 8 mm in the circumflex. Result was 0% residual. IMPRESSION: Successful PTCA stent of the left circumflex going from left circumflex and LAD, both going from 70% to 80% initial stenosis to 0% residual. TRANSINT:[id number] Voice Confirmation ID: [id number] DOCUMENT ID: [id number] URSZULA SANTOS MD at 1741 CC: [id number] DICTATION DATE: 10/14/17923 DRIVER'S LICENSE REVIEWING OFFICER: 10/14/17 1018 DEP CLI 10/14/17 [place] [id number]
[2017-10-14 07:41] VITALS: BP 177/75; Ht 172.7 cm; Wt 68.2 kg
[~2017-10-14 07:41] MED LIST: BAYER CHEWABLE81 MG PO; PLAVIX75 MG PO
[2017-10-14 08:17] LABS: BASOPHILS 0.3 % (0-2); EOSINOPHILS 5.1 % (0-7); HEMATOCRIT 39.5 % (42.0-54.0); HEMOGLOBIN 13.3 g/dL (13.5-17.5); LYMPHOCYTES 27.5 % (15-50); MCH 31.5 pg (26.0-34.0); MCHC 33.7 g/dL (31.0-37.0); MCV 93.6 fL (80.0-100.0); MEAN PLATELET VOLUME 10.4 fL (7.4-10.4); MONOCYTES 7.8 % (2-11); NEUTROPHILS 59.3 % (40-80); PLATELET COUNT 189 10x3/uL (130-400); RBC 4.22 10x6/uL (4.20-6.10); RDW 13.4 % (11.5-14.5); WBC 7.1 10x3/uL (4.8-10.8)
[2017-10-14 08:37] LABS: CALC OSMOLALITY 279 mosm/kg (275-300); CALCIUM 8.4 mg/dL (8.5-10.1); CHLORIDE - SERUM 106 mmol/L (98-107); CREATININE - SERUM 0.9 mg/dL (0.6-1.3); GLUCOSE 108 mg/dL (74-106); POTASSIUM - SERUM 4.2 mmol/L (3.5-5.1); SODIUM 139 mmol/L (136-145); UREA NITROGEN 14 mg/dL (7-18); eGFR NON AFRICAN AMERICAN 89 mL/min (90-120)
== END 2017-10-14 13:26 ==
LOC: D.CATH 07:41
PROVIDERS: Internal Medicine Interventional Cardiology
DX: I25.119 Atherosclerotic heart disease of native coronary artery with unspecified angina pectoris (principal); Z95.5 Presence of coronary angioplasty implant and graft
CPT/HCPCS: C9600 ×2

== ENCOUNTER 2017-11-27 17:09 | Emergency (ER) | payer MEDICARE ==
[~2017-11-27] VITALS: Ht 172.7 cm; Wt 67.3 kg
[2017-11-27 17:17] VITALS: BP 169/69; Ht 172.7 cm; Wt 67.3 kg
[2017-11-27] MEDS ORDERED: MUPIROCIN22 GM TOPICAL (19:31)
[2017-11-27] MEDS ORDERED: TYLENOL W/CODEI1 TAB PO (19:31)
== END 2017-11-27 19:43 | disposition home or self-care (01) ==
LOC: D.ER 17:09
DX: S61.215A Laceration without foreign body of left ring finger without damage to nail, initial encounter (principal); W23.0XXA Caught, crushed, jammed, or pinched between moving objects, initial encounter; Y93.89 Activity, other specified; Y92.019 Unspecified place in single-family (private) house as the place of occurrence of the external cause; F17.200 Nicotine dependence, unspecified, uncomplicated